=== PATIENT | female | born 1940 | race Caucasian/White ===

== ENCOUNTER → 2016-07-13 | Outpatient (CLI) | payer OTHER ==
[~2016-07-13] MED LIST: DUO-KAPS1 CAP; EPA-CON500 MG; ESTRACE0.5 MG; HYDROCHLOR50 MG; PRILOSEC 20MG20 MG; REGLAN 5MG T5 MG/TAB; RITE AID CHILDR; SIMVASTATIN5 MG; ZYRTEC5 MG
== END ==
LOC: LAB 08:53
DX: I10 Essential (primary) hypertension (principal); E78.5 Hyperlipidemia, unspecified

== ENCOUNTER 2017-09-07 19:48 | Emergency (ER) | payer MEDICARE ==
[~2017-09-07] VITALS: Ht 154.9 cm; Wt 75.0 kg
[~2017-09-07 19:48] MED LIST changes: -PRILOSEC 20MG20 MG; +PRILOSEC 20MG20 MG PO; +SIMVASTATIN40 M1 PO; -SIMVASTATIN5 MG
[2017-09-07 20:33] LABS: EOS # 0.1 (0.04-0.40); EOS % 1.5 % (1.0-5.0); HEMATOCRIT 42.6 % (37.0-47.0); HEMOGLOBIN 14.4 g/dL (12.5-16.0); LYMPH# 2.2 (1.50-4.00); MEAN CELL VOLUME 91 fl (78-100); MEAN CORPUSCULAR HEMOGLOBIN 31 pg (27-31); MEAN CORPUSCULAR HGB CONC 34 g/dL (33-37); MEAN PLATELET VOLUME 10.9 fl (7.4-10.4); MONO # 0.7 (0.20-0.80); NEU # 3.8 (1.40-6.50); PLATELET COUNT 188 K/mm3 (130-400); RED CELL DISTRIBUTION WIDTH 13.3 % (11.5-14.5); WHITE BLOOD COUNT 6.7 K/mm3 (4.8-10.8)
[2017-09-07 20:45] LABS: ALBUMIN 4.4 g/dL (3.5-5.0); BUN/CREATININE RATIO 21.2 (6.0-26.0); POTASSIUM 3.3 mmol/L (3.6-5.0); TOTAL BILIRUBIN 0.3 mg/dL (0.2-1.3); TOTAL PROTEIN 7.7 g/dL (6.3-8.2)
[2017-09-07 22:08] LABS: PH-URINE 6.5 (5.0 - 8.0); URINE APPEARANCE CLEAR; URINE BILIRUBIN NEGATIVE (NEGATIVE); URINE BLOOD TRACE (NEGATIVE); URINE COLOR YELLOW; URINE GLUCOSE NEGATIVE (NEGATIVE); URINE KETONE NEGATIVE (NEGATIVE); URINE LEUKOCYTE ESTERASE TRACE (NEGATIVE); URINE NITRATE NEGATIVE (NEGATIVE); URINE PROTEIN(semi-quant) NEGATIVE (NEGATIVE); URINE UROBILINOGEN NORMAL (NORMAL)
[2017-09-08 01:12] VITALS: BP 162/52
== END 2017-09-08 01:12 | disposition home or self-care (01) ==
LOC: ED 19:48
PROVIDERS: Nurse Practitioner Family
DX: I10 Essential (primary) hypertension (principal); Q60.0 Renal agenesis, unilateral; K21.9 Gastro-esophageal reflux disease without esophagitis; R53.1 Weakness; R41.0 Disorientation, unspecified; Z79.82 Long term (current) use of aspirin

== ENCOUNTER → 2017-09-08 | Outpatient (CLI) | payer MEDICARE ==
[2017-09-08 01:12] VITALS: BP 162/52
== END ==
LOC: RAD 07:34
DX: I67.82 Cerebral ischemia (principal); I10 Essential (primary) hypertension
CPT/HCPCS: A9585

== ENCOUNTER 2019-05-28 16:34 | Emergency (ER) | payer MEDICARE ==
[~2019-05-28] VITALS: Ht 152.4 cm; Wt 71.8 kg
[2019-05-28] MEDS ORDERED: METOCLOPRAMIDE10 M5 PO (16:45)
[2019-05-28] MEDS ORDERED: FLUTICASON0.05 MG/AC NS (16:45)
[2019-05-28] MEDS ORDERED: MUCINEX 60600 MG/TA1 PO (16:46)
[2019-05-28 17:54] LABS: HEMATOCRIT 37.6 % (37.0-47.0); HEMOGLOBIN 12.6 g/dL (12.5-16.0); MEAN CELL VOLUME 91 fl (78-100); MEAN CORPUSCULAR HEMOGLOBIN 30 pg (27-31); MEAN CORPUSCULAR HGB CONC 34 g/dL (33-37); MEAN PLATELET VOLUME 9.4 fl (7.4-10.4); PLATELET COUNT 225 K/mm3 (130-400); RED BLOOD COUNT 4.15 M/mm3 (4.10-5.30); RED CELL DISTRIBUTION WIDTH 13.8 % (11.5-14.5); WHITE BLOOD COUNT 10.3 K/mm3 (4.8-10.8)
[2019-05-28 18:05] LABS: POTASSIUM 3.9 mmol/L (3.5-5.1)
[2019-05-28 18:06] LABS: CALCIUM 10.4 mg/dL (8.3-10.5)
[2019-05-28 18:08] LABS: URINE APPEARANCE CLEAR; URINE BILIRUBIN NEGATIVE (NEGATIVE); URINE BLOOD 50 ery/uL (NEGATIVE); URINE COLOR YELLOW; URINE GLUCOSE NEGATIVE (NEGATIVE); URINE KETONE NEGATIVE (NEGATIVE); URINE LEUKOCYTE ESTERASE TRACE (NEGATIVE); URINE NITRATE NEGATIVE (NEGATIVE); URINE PROTEIN(semi-quant) 1+ mg/dL (NEGATIVE); URINE UROBILINOGEN NORMAL (NORMAL); URINE WBC 31-50 /hpf (0-3)
[2019-05-28 18:11] LABS: LYMPHOCYTE 12 % (20-51); MONOCYTE 10 % (3-10); NEUTROPHILS 78 % (42-75)
[2019-05-28] MEDS ORDERED: SEPTRA DS 8001 TAB PO ×2 (18:26→18:32)
[2019-05-28 18:48] VITALS: BP 145/74
== END 2019-05-28 18:53 | disposition home or self-care (01) ==
LOC: ED 16:34
PROVIDERS: Family Medicine
DX: J06.9 Acute upper respiratory infection, unspecified (principal); N30.90 Cystitis, unspecified without hematuria; I10 Essential (primary) hypertension; K21.9 Gastro-esophageal reflux disease without esophagitis; Q60.0 Renal agenesis, unilateral; Z79.82 Long term (current) use of aspirin
CPT/HCPCS: J0696

== ENCOUNTER → 2019-08-14 | Outpatient (CLI) | payer MEDICARE ==
[~2019-08-14] MED LIST changes: +FLUTICASON0.05 MG/AC NS; +METOCLOPRAMIDE10 M5 PO; +MUCINEX 60600 MG/TA1 PO; +SEPTRA DS 8001 TAB PO
== END ==
LOC: RAD 13:46
DX: M16.0 Bilateral primary osteoarthritis of hip (principal)

== ENCOUNTER → 2022-04-23 | Outpatient (CLI) | payer MEDICARE | LOC: RAD 17:03 | DX: M19.072 Primary osteoarthritis, left ankle and foot (principal); S99.922A Unspecified injury of left foot, initial encounter; X58.XXXA Exposure to other specified factors, initial encounter ==

== ENCOUNTER 2024-07-29 08:22 | Emergency (ER) | payer MEDICARE ==
[~2024-07-29] VITALS: Ht 157.5 cm; Wt 64.5 kg
[2024-07-29] MEDS ORDERED: Topical Skin Adhesive 1 EACH (0.5 ML) TOP ONE (09:00)
[2024-07-29 09:55] VITALS: BP 123/74
[2024-07-29] MEDS ORDERED: Tdap Vaccine 0.5 ML SYRINGE IM ONE (10:00)
== END 2024-07-29 10:04 | disposition home or self-care (01) ==
LOC: ED 08:22
DX: S00.83XA Contusion of other part of head, initial encounter (principal); S00.31XA Abrasion of nose, initial encounter; W01.0XXA Fall on same level from slipping, tripping and stumbling without subsequent striking against object, initial encounter; Y93.K1 Activity, walking an animal; Y92.009 Unspecified place in unspecified non-institutional (private) residence as the place of occurrence of the external cause
CPT/HCPCS: 90715